=== PATIENT | female | born 1995 | race Caucasian/White ===

== ENCOUNTER 2017-05-02 01:47 | Emergency (ER) | payer OTHER ==
[2017-05-02 01:53] VITALS: O2SAT 97
[2017-05-02] MEDS ORDERED: LORazepam 1 MG TAB ONE (02:12)
[2017-05-02] MEDS ORDERED: LORazepam 1 MG TAB PO ONE (02:15)
[2017-05-02] MEDS ORDERED: LORazepam 0.5 MG TAB ONE (03:01)
[2017-05-02] MEDS ORDERED: LORazepam 0.5 MG TAB PO ONE (03:02)
[2017-05-02] MEDS ORDERED: LORAZEPAM 1 MG PREPACK#4 BTL TAKEHOME ONE (03:52)
--- NOTE | 2017-05-02 03:52 | EDPHY ---
H & P Stated Complaint: Woke up shaking and N & V. Time Seen by Provider: 05/02/17 02:30 HPI/ROS: HPI The patient presents with anxiety and concern for an anxiety attack. Tonight, she developed some nausea after eating her dinner. She began to feel anxious at around 10:30 p.m. and then went to bed. She awoke at 12:30 a.m. and was unable to fall back asleep, she says she just could not calm down. She said that she started shaking in her mouth felt very dry. She had ongoing nausea. She does have a history of similar episodes associated with anxiety. She wonders if this was provoked by an exam she has coming up. Her symptoms did not improve at home so she comes into the emergency department. She has been seen at the [facility] [place] for anxiety. REVIEW OF SYSTEMS Constitutional: No fever, no chills. Eyes: No discharge. ENT: No sore throat. Cardiovascular: No chest pain, no palpitations. Respiratory: No cough, no shortness of breath. Gastrointestinal: No abdominal pain, no vomiting. Genitourinary: No hematuria. Musculoskeletal: No back pain. Skin: No rashes. Neurological: No headache. PMHx: History of anxiety, not on any medications for this Soc Hx: College student PHYSICAL General Appearance: Alert, anxious appearing and tremulous Eyes: Pupils equal and round no pallor or injection ENT, Mouth: Mucous membranes moist Respiratory: There are no retractions, lungs are clear to auscultation Cardiovascular: Regular rate and rhythm Gastrointestinal: Abdomen is soft and non-tender, no masses, bowel sounds normal Neurological: A&O, moves all extremities Skin: Warm and dry, no rashes Musculoskeletal: Neck is supple non tender Extremities: symmetrical, full range of motion Psychiatric: Patient is oriented X 3, there is no agitation Source: Patient Exam Limitations: No limitations - Personal History LMP (Females 10-55): 15-21 Days Ago Current Tetanus/Diphtheria Vaccine: Unsure Current Tetanus Diphtheria and Acellular Pertussis (TDAP): Unsure - Medical/Surgical History Hx Asthma: No Hx Chronic Respiratory Disease: No Hx Diabetes: No Hx Cardiac Disease: No Hx Renal Disease: No Hx Cirrhosis: No Hx Alcoholism: No Hx HIV/AIDS: No Hx Splenectomy or Spleen Trauma: No Other PMH: Ear pinning, anxiety. - Social History Smoking Status: Never smoked Constitutional: Initial Vital Signs Temperature (C) 36.8 C 05/02/17 01:50 Heart Rate 103 H 05/02/17 01:50 Respiratory Rate 18 05/02/17 01:50 Blood Pressure 114/97 H 05/02/17 01:50 O2 Sat (%) 97 05/02/17 01:50 O2 Delivery Mode Room Air Allergies/Adverse Reactions: cashew nut Allergy (Intermediate, Verified 05/02/17 01:54) Swelling/neck,face,throat gluten Allergy (Intermediate, Verified 05/02/17 01:54) Abdominal Pain Milk Containing Products [dairy] Allergy (Intermediate, Verified 05/02/17 01:54) Abdominal Pain Home Medications: Medication Instructions Recorded NK [No Known Home Meds] 05/02/17 Medical Decision Making Differential Diagnosis: 21-year-old healthy female with history of anxiety presents with symptoms of an anxiety attack earlier tonight, symptoms have continued and are not well controlled at home. Differential diagnosis includes anxiety attack, stress response, less likely hyperthyroidism or pheochromocytoma. In the emergency department, patient attempted deep breathing exercises in a quiet room for about 30 minutes without any improvement in her symptoms. She was given a dose of Ativan 0.5 mg by mouth with improvement in her symptoms. Her father arrived and we discussed her care. She felt well enough to go home. She will be discharged home with follow up with her student center. We have given her resources for mental health as well. I will send her home with a pill pack of Ativan to use only as needed. She is in agreement with this plan. - Data Points Medications Given: Discontinued Medications Lorazepam (Ativan) 1 mg PO EDNOW ONE Stop: 05/02/17 02:16 Last Admin: 05/02/17 03:10 Dose: Not Given Lorazepam (Ativan) 0.5 mg PO EDNOW ONE Stop: 05/02/17 03:03 Last Admin: 05/02/17 03:03 Dose: 0.5 mg Lorazepam (Ativan 1 Mg Prepack#4) 1 btl TAKEHOME EDNOW ONE Stop: 05/02/17 03:53 Last Admin: 05/02/17 04:07 Dose: 1 btl Departure - Departure Disposition: Home, Routine, Self-Care Clinical Impression: Anxiety attack Condition: Good Instructions: Lorazepam (By mouth), Anxiety (ED), Anxiolysis in Adults (ED) Additional Instructions: Please make sure to return to the emergency department if you're feeling worse or unsafe in any way. Referrals: [facility] [Other] - As per Instructions
[2017-05-02 04:02] VITALS: BP 114/66; PULSE 78; RESP 16; TEMP 97.9
== END 2017-05-02 04:16 | disposition home or self-care (01) ==
DX: F41.9 Anxiety disorder, unspecified (principal)